=== PATIENT | female | born 1995 | race Caucasian/White ===

== ENCOUNTER → 2018-12-25 09:47 | Observation (INO) ==
--- NOTE | 2018-12-24 19:38 | OB/GYN History & Physical ---
Date of Encounter: 12/24/18 Time of Encounter: 19:32 Assessment and Plan (1) 28 weeks gestation of Current visit: Yes Status: Acute (2) Vaginal bleeding during Current visit: Yes Status: Acute Bleeding is now stable and minimal. She will continue to be monitored with EFM on bedrest with SCDs with repeat beta methasone in 24 hours. (3) History of delivery, currently in third trimester Current visit: Yes Status: Acute History of Present Illness Chief complaint: vaginal bleeding HPI: Ms. Cifuentes is a 23 year old female G 2 P 0-1-0-1 at 28 2/7 weeks presents for vaginal bleeding that began around 1820 this evening. She states she has been on bedrest for a placental abruption that she states had "healed". She denies any pain or contractions. She is not reporting any gush of fluid, but the blood tinged fluid was gushing from her vagina when she sat on the toilet. She reports good movement as recent as 2 hours ago. She states her first was complicated by PPROM with subsequent delivery 2 months early (she is unsure of the gestational age and her records are not available). Past Med Surg Social Fam HX - Past Medical History Medical history: no medical history Psychiatric history: no psych history - Social History Smoking Status: Current every day smoker Smokeless Tobacco Status: No Alcohol use: none Drug use: none - Family History Mother History Unknown: Yes Medications and Allergies Caplet 1 tab PO DAILY 12/24/18 [History] Allergy/AdvReac Type Severity Reaction Status Date / Time No Known Allergies Allergy Verified 12/24/18 19:32 Review of System OB All systems PM: reviewed and no additional remarkable complaints except as stated - Constitutional Constitutional ROS IM: no chills, no fever(s) - Gastrointestinal Gastrointestinal: no cramping, no diarrhea, no nausea, no vomiting - Genitourinary Genitourinary: abnormal vaginal bleeding, no dysuria, no hematuria, no vaginal discharge, no vaginal dryness Exam - Constitutional Constitutional: well developed, well nourished, no acute distress - HEENT HEENT: EOMI, Mucus Membranes Moist - Lungs Respiratory exam: CTAB - Cardiovascular Cardiovascular exam: RRR - Abdomen Abdomen: Present: bowel sounds normal, gravid, non tender - Vulva Vulva: bilateral: normal - Comments Comments: SSE-clotted blood in the vault. Cervix is visually closed. No active uterine, cervical, or vaginal bleeding. Bedside ultrasound to determine presentation-breech, and location of FHTs Results Result Diagrams: 12/24/18 19:00 All other labs normal. - VTE Reasons for not Prescribing Prophylaxis: Treatment not Indicated - Low risk for VTE
[2018-12-24 19:40] LABS: Basophils % 0.2 %; Eosinophils # 0.1 K/mcL (0.0-0.6); Hematocrit 37.9 % (35.3-44.9); Immature Granulocytes % 0.4 % (0-4); Lymphocytes # 1.7 K/mcL (0.6-4.6); Lymphocytes % 13.8 %; Mean Corpuscular HGB Conc 34.3 g/dL (31.6-35.5); Mean Corpuscular Hemoglobin 31.3 pg (28.0-33.3); Mean Corpuscular Volume 91.3 fL (83.0-100.0); Monocytes % 8.4 %; Neutrophils # 9.4 K/mcL (1.6-8.9); Platelet Count 236 K/mcL (140-400); Red Blood Count 4.15 M/mcL (3.82-4.97); Red Cell Distribution Width 12.8 % (11.5-14.5); Segmented Neutrophils % 76.2 %; White Blood Count 12.3 K/mcL (4.3-11.1)
[2018-12-24 19:51] LABS: INR 0.9
--- NOTE | 2018-12-24 23:10 | OB Labor Progress Note ---
Date of Encounter: 12/24/18 Time of Encounter: 23:06 Labor Progress Note - Subjective Subjective: Called to see patient for increased pain that is coming and going - Cervix Cervix: closed, thick, posterior. Dark clot noted in bed coulter, but no active vaginal bleeding at this time. - Heart Tones Heart Tones: 125, reassuring for gestational age - [facility]: q 2-3 minutes - Plan Plan: Discussed with patient and 2 ladies in the room supporting her. If she dilates or has another gush of blood she will likely need a for the abruption. At this time she is not having vaginal bleeding, although she passed a small dark clot there is no active vaginal bleeding. The contractions she is feeling palpate mild and are not causing cervical dilation. I explained again to the patient and now to her support ladies that with an abruption we do not tocolyize. I am ordering Magnesium Sulfate 4 gm load and 1 gm/hr for neuroprotection should she deliver in the next 24-48 hours. Right now it is just expectant management. We discussed possibility of transfer to [facility] should her pain improve vs keeping her here overnight. She just reports being anxious about what might happen. All questions are answered.
--- NOTE | 2018-12-25 08:49 | Discharge Summary ---
Date of Encounter: 12/25/18 Time of Encounter: 08:53 - Discharge Diagnosis (1) 28 weeks gestation of Priority: Primary Status: Acute (2) History of delivery, currently in third trimester Priority: Secondary Status: Acute Comments: 31-32 weeks, PPROM, no documentation in chart but per patient report, delivered at [facility] with Dr. Torres (3) Vaginal bleeding during Priority: Secondary Status: Acute Comments: Active bleeding has subsided. Initial hemoglobin 13.0. Repeat CBC was ordered at 04 100 on 12/25 and has yet to be drawn. (4) Breech presentation Priority: Secondary Status: Acute Comments: Confirmed by ultrasound twice on labor and delivery Qualifiers: Fetus number: single or unspecified fetus Qualified Code(s): O32.1XX0 - Maternal care for breech presentation, not applicable or unspecified (5) labor in third trimester Priority: Secondary Status: Acute Comments: The patient is changed from closed and thick and posterior to 2 cm/50%/-1 with thinning lower uterine segment, mid position. Patient has received magnesium sulfate for neuroprotection but not for tocolysis due to concern for abruptio placentae. She received her initial dose of steroids at 1928 on 12/24/18. Since the patient is actively having cervical change and may need delivery, I recommend that she be transferred to a higher level institution for potential care. The patient has been accepted for transfer by [facility], Dr. Alexsander Ortiz and transfer has been initiated. Penicillin GBS prophylaxis has been initiated. Qualifiers: labor delivery status: without delivery Qualified Code(s): O60.03 - labor without delivery, third trimester (6) Placental abruption in third trimester Priority: Secondary Status: Acute Comments: The patient reports a history of bleeding in October, acute onset of bleeding on 12/24 which has subsided. Scant pink seen at this time. Placenta is fundal and posterior - Discharge Medications Prescriptions: No Action Caplet 1 tab PO DAILY Home Medications: Caplet 1 tab PO DAILY 12/24/18 [History] Allergies/Adverse Reactions: Allergy/AdvReac Type Severity Reaction Status Date / Time No Known Allergies Allergy Verified 12/24/18 19:32 Data Procedures and tests throughout hospitalization: Laboratory Tests 12/24/18 12/24/18 19:00 19:00 WBC 12.3 H RBC 4.15 Hgb 13.0 Hct 37.9 MCV 91.3 MCH 31.3 MCHC 34.3 RDW 12.8 Plt Count 236 MPV 11.0 Immature Gran % 0.4 Seg Neutrophils % 76.2 Lymphocytes % 13.8 Monocytes % 8.4 Eosinophils % 1.0 Basophils % 0.2 Neutrophils # 9.4 H Lymphocytes # 1.7 Monocytes # 1.0 Eosinophils # 0.1 Basophils # 0.0 PT 10.0 INR 0.9 Fibrinogen 476 H Labs on day of discharge: Labs from last 24 hours 12/24/18 12/24/18 19:00 19:00 WBC 12.3 H RBC 4.15 Hgb 13.0 Hct 37.9 MCV 91.3 MCH 31.3 MCHC 34.3 RDW 12.8 Plt Count 236 MPV 11.0 Immature Gran % 0.4 Seg Neutrophils % 76.2 Lymphocytes % 13.8 Monocytes % 8.4 Eosinophils % 1.0 Basophils % 0.2 Neutrophils # 9.4 H Lymphocytes # 1.7 Monocytes # 1.0 Eosinophils # 0.1 Basophils # 0.0 PT 10.0 INR 0.9 Fibrinogen 476 H Date of admission: 12/24/18 19:10 Primary care physician: Dacia Foley CNP Discharging clinician: Nell Foster Anticipated date of discharge: 12/25/18 - Patient Status Disposition: Transfer Critical Access Hosp Condition: Fair Functional capacity at discharge: independent ambulation Overall status at discharge: patient is not back to baseline - Discharge Instructions Follow Up With: Dacia Foley CNP [Primary Care Provider] - Sha Torres MD [Partnered Physician] - - Diet and Activity Activity: other (Bed rest) Diet: other 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 She was put on magnesium with a 4 g load and 1 g an hour for neuro protection. Acute vaginal bleeding subsided. The patient had contractions which originally she did not appreciate and later she felt were somewhat uncomfortable but resolved with Nubain. heart tones remained stable with a baseline of 120s with accelerations. Contractions at time of transfer are irregular every 4-10 minutes. It was documented that there was cervical change from closed and thick and posterior to 2 cm/50% and -1. presenting part was firm and round and hard, bedside ultrasound confirmed that the fetus is still luanne breech presentation. Only scant dark pink discharge seen on glove, no active bleeding at the time of exam. Once labor was confirmed with cervical change, penicillin GBS prophylaxis has been initiated. Discussed with patient recommendation for transfer to tertiary [facility] for care should the fetus be born prior to 32 weeks as our nursery is a level II nursery it would not be appropriate for care at 28 weeks gestation. Patient understands and verbalizes the reason for transfer and has given consent. The transfer has been approved by [facility], Dr. Alexsander Ortiz is been the accepting [facility] physician of note. Time Attestation: Total time spent providing and/or coordinating discharge services: Time Spent: Less than 30 minutes Specific discharge activities: Transfer to [facility] for continuation of care Exam - Constitutional General appearance IM: cooperative, A&O X 3, pleasant, no acute distress - Respiratory Respiratory exam: Present: CTAB. Absent: respiratory distress - Cardiovascular Cardiovascular exam IM: Present: RRR. Absent: irregular rhythm - GI/Abdominal GI/Abdominal exam IM: normal bowel sounds, soft - Rectal Rectal exam: deferred - Additional comments: Gravid, nontender - Extremities Exam Extremities exam IM: Absent: calf tenderness - Neurological Exam Neurological exam: alert, oriented X3, no focal deficits - Other Additional findings: Cervix is 2/50/-1, luanne breech confirmed by bedside ultrasound - VTE Documentation of Mechanical Device: Intermittent pneumatic compression device
[~2018-12-25 09:47] MED LIST: *HR* Nalbuphine 10 MG/ML AMPUL IV ONE; Betamethasone Acet/SodPhos 30 MG/5 ML VIAL IM SCH; Magnesium Sulfate 20 gm/500mL 20 GM/500 ML IV.SOLN IVC SCH; Penicillin G Potassium 5,000,000 UNIT in 0.9 % Sodium Chloride Mini Bag 100 ML IVPB ONE; Ringers Solution, Lactated 1,000 ML IVC SCH
== END | disposition critical access hospital (66) ==
LOC: 1NENULAB
PROVIDERS: ADMIT Advanced Practice Midwife; ATTEND Advanced Practice Midwife

== ENCOUNTER 2019-01-14 12:55 | Observation (INO) ==
[2019-01-14 11:50] LABS: Bilirubin,Urine Negative (Negative); Blood,Urine Moderate (Negative); Clarity,Urine Cloudy (Clear); Color,Urine Yellow (Yellow); Glucose,Urine (UA) Normal (Normal); Ketones,Urine Negative (Negative); Leukocyte Esterase,Urine Moderate (Negative); Nitrite,Urine Negative (Negative); Protein,Urine Negative (Neg-Trace); Specific Gravity,Urine 1.011 (1.010-1.025); Urobilinogen,Urine Normal (Normal)
[2019-01-14 11:51] LABS: Bacteria,Urine Few per hpf (None-Few); Hyaline Casts,Urine None Seen per lpf (None-Few); Squamous Epithelial Cell,Urine Many per lpf (None-Few)
[2019-01-14 12:17] LABS: Amphetamine Screen,Urine Negative ng/mL (Cutoff=1000); Barbiturate Screen,Urine Negative ng/mL (Cutoff=200); Benzodiazepines Screen,Urine Negative ng/mL (Cutoff=200); Cannabinoid Screen,Urine Positive ng/mL (Cutoff = 50); Cocaine Screen,Urine Negative ng/mL (Cutoff= 300); Opiate Screen,Urine Negative ng/mL (Cutoff=300); Phencyclidine Screen,Urine Negative ng/mL (Cutoff=25)
[2019-01-14 12:49] LABS: Basophils % 0.2 %; Eosinophils # 0.1 K/mcL (0.0-0.6); Eosinophils % 0.8 %; Hematocrit 35.7 % (35.3-44.9); Hemoglobin 12.2 g/dL (11.5-15.4); Immature Granulocytes % 0.6 % (0-4); Lymphocytes # 1.5 K/mcL (0.6-4.6); Lymphocytes % 12.6 %; Mean Corpuscular HGB Conc 34.2 g/dL (31.6-35.5); Mean Corpuscular Hemoglobin 31.2 pg (28.0-33.3); Mean Corpuscular Volume 91.3 fL (83.0-100.0); Mean Platelet Volume 10.8 fL (9.4-12.4); Monocytes # 0.9 K/mcL (0.0-1.3); Monocytes % 7.5 %; Neutrophils # 9.2 K/mcL (1.6-8.9); Platelet Count 219 K/mcL (140-400); Red Blood Count 3.91 M/mcL (3.82-4.97); Red Cell Distribution Width 13.3 % (11.5-14.5); Segmented Neutrophils % 78.3 %; White Blood Count 11.8 K/mcL (4.3-11.1)
[2019-01-14 13:13] LABS: Prothrombin Time 10.8 Seconds (9.4-12.1)
[2019-01-14 13:15] LABS: Activated Partial Thrombo Time 28.3 Seconds (26.0-36.0)
--- NOTE | 2019-01-14 15:45 | OB/GYN Progress Note ---
Date of Encounter: 01/14/19 Time of Encounter: 15:41 - Assessment and Plan (1) 31 weeks gestation of Current Visit: Yes Status: Acute complicated by hx of PPROM/PTD at 33 wks and marginal abruption midtrimester-resolved now w/ vb for 2nd time in 3rd tri (2) contractions Current Visit: Yes Status: Acute giving fluid bolus and IVF. giving rescue steroids. Plan to remain for 24 hour observation w/ CEFM/toco on clear liquids diet. (3) History of delivery, currently in third trimester Current Visit: No Status: Acute Pt is not on progesterone (4) Vaginal bleeding during Current Visit: No Status: Acute No current bleeding, vb noted as recently as 8-9am this morning, normal abruption labs, normal appearing placenta, she is Rh pos Subjective - Subjective Principal diagnosis: vaginal bleeding, contractions Interval history: 23 yo at 31 2/7 wks presents w/ episode of bleeding overnight. Last noted bleeding this AM around 8-9 am. She denies LOF or ctxs however, after her US here today, she feels crampy and has ctxs on the monitor. She has normal FM. It's a boy! Antepartum issues: hx of marginal abruption diagnosed around 20 weeks, clot seen on US. The clot resolved. She was transferred to [facility] again in early December with episode of bleeding which resolved. There was no evidence of abruption on US or with lab work during this work up. hx of PPROM at 33 wks-she is not on progesterone. She is a smoker and does use marijuana occasionally. Smokes 1/2ppd cigs. Trying to quit. Objective - Vital Signs Vital Signs: Intake and Output 01/13/19 01/14/19 01/14/19 23:59 07:59 15:59 Other: Weight 72.9 kg Patient Weight 01/14/19 23:59 Weight 72.9 kg - Exam FHR comments: 120/mod variability/+A,-D, q2-3m contractions Uterus: Absent: tenderness Cervical dilation: vis closed-reports being 1cm on digital exam last week, no pooling, no blood in the vault, exam completed once pt felt the ctxs-no change from 3 weeks ago /-3 - Labs Labs: Abnormal lab results WBC 11.8 K/mcL (4.3-11.1) H 01/14/19 12:30 Neutrophils # 9.2 K/mcL (1.6-8.9) H 01/14/19 12:30 Fibrinogen 482 mg/dL (169-393) H 01/14/19 12:20 Urine Clarity Cloudy (Clear) A 01/14/19 11:33 Urine Blood Moderate (Negative) H 01/14/19 11:33 Ur Leukocyte Esterase Moderate (Negative) H 01/14/19 11:33 Urine Microscopic RBC 3-5 per hpf (0-3) H 01/14/19 11:33 Urine Microscopic WBC 5-15 per hpf (0-3) H 01/14/19 11:33 Ur Squamous Epith Cells Many per lpf (None-Few) H 01/14/19 11:33 Ur Culture Indicated? YES (NO) A 01/14/19 11:33 U Marijuana (THC) Screen Positive ng/mL (Cutoff = 50) H 01/14/19 11:33
[2019-01-14] MEDS ORDERED: Ringers Solution, Lactated 500 ML IVC ONE (16:11)
[2019-01-14] MEDS ORDERED: Ringers Solution, Lactated 1,000 ML IVC SCH (16:15)
[2019-01-14] MEDS ORDERED: Betamethasone Acet/SodPhos 30 MG/5 ML VIAL IM SCH (16:15)
--- NOTE | 2019-01-14 19:39 | Event Note ---
Date of Encounter: 01/14/19 Time of Encounter: 19:32 CTSP for vb. S: She is feeling comfortable because the IVF decreased the contraction pain. She is not even sure she feels contractions or discomfort from the movement. O: VSS FHT 125/mod variability/+A,-D toco irritable, no ctxs noted exam of pad: light spotting noted A/P: 23yo at 31 2/7 wks w/ hx of PPROM at 33 wks and now w/ complicated by marginal abruption starting at 20 weeks who is admitted for observation due to vb and ctxs. Plan to cont modified bedrest w/ CEFM/toco. tracing is normal and actually reactive with 15x15's. Switch from reg to clear liquids diet due to bleeding. Cont to monitor bleeding. She has active T&S. S/p first dose of steroids-this is a rescue steroid course as she had initial course 12/24-. If she starts to bleed more or show sign of labor, plan to transfer to [facility]. If she stops bleeding and pricilla, she may go home after 24hrs of reassuring tracing and no bleeding. All questions answered.
--- NOTE | 2019-01-15 07:05 | Event Note ---
Date of Encounter: 01/15/19 Time of Encounter: 07:01 CTSP for spotting on pad. Pt reports single uncomfortable contraction this morning. She then noted spotting. VSS FHTs 120/mod variability/+A,-D toco irreg ctxs small spot of blood on pad A/P 23yo at 32 3/7 wks w/ hx of PPROM/abruption/PTD at 33 wks and with this , marginal abruption diagnosed around 20 wks-resolved, with a 2nd bleed 3 weeks ago. Now, admitted for observation due to episode of bleeding that started two days ago, intermittent spotting since then. Plan for completion of rescue steroid course tonight then go from there.
--- NOTE | 2019-01-15 09:53 | Event Note ---
Date of Encounter: 01/15/19 Time of Encounter: 09:51 23yo at 31+3wks GA, admitted to for observation 2/2 concern for placental abruption. Hx of marginal cord insertion this that has since resolved. Her obstetrical hx is that of a placental abruption, labor, and PTD at 33wks. This was a VAVD. Her current has been complicated by vaginal bleeding and a marginal placenta. She has been followed closely by her providers and seen at [facility] after her 1st bleeding ~14 days prior. She rec'd BMZ (completed round 1), and was discharged after being found to be stable. She represented on 01/13/2019 with bleeding. A TAUS was performed showing a posterior placenta, with no deformities. PATRICIA was subjectively normal, baby measuring ~60th%ile. At 0914 this AM, patient had a rebleed, hasn't had bleeding since her admission to (was having spotting at home) but we only appreciated spotting between voids, but per nights team, she did not have bleeding on the SSE. Closed visually. The patient passed a golfball sized clot in the toilet while urinating. It was at this time she called out for assistance. CNM was called to bedside, and a SSE was performed. Dark blood was appreciated in vault ~10cc. No active bright red blood was seen but there was scarlet, clot-like blood in vault. The patient was denying contraction(s), as the baby on CEFM was R&R for GA. THe patient was respected by the MD (Dr. Robledo) ~15minutes later as our concern for placental abruption and PTD was significant. A similar exam was appreciated. No active bright red blood was appreciated, ~10-15cc maximum of scarlet appreciated. Irritation for the speculum was appreciated. No blood active bleeding from the vagina, no blood on the perineum. Recommendation at this time was for patient to be transferred to [facility] pending maternal and stability. [place] is unable to delivery infants <32wks GA. Obstetrically, we have maxed our obstetrical ability, which is similar to what [facility] would do. Our concern is her baby, as NICU would be better suited for delivery. Her second dose of BMZ is due at 1630 this afternoon. THe patient was kept 1.5hr after her bleed to ensure maternal and stability. Her tracing was appropriate for GA, as the bleeding had discontinued. Minimal spotting with wiping and immediately following exam. No blood pooled in vault. Final exam prior to transfer was reassuring. MD TEO
[2019-01-15 10:24] LABS: Prothrombin Time 11.1 Seconds (9.4-12.1)
== END 2019-01-15 11:14 | disposition critical access hospital (66) ==
LOC: 1NENULAB
PROVIDERS: ADMIT Obstetrics & Gynecology; ATTEND Obstetrics & Gynecology